=== PATIENT | male | born 1995 | race African-American/Black ===

== ENCOUNTER 2023-12-15 17:09 | Emergency (ER) | payer OTHER, SELFPAY ==
[2023-12-15 17:18] VITALS: BP 127/86
--- NOTE | 2023-12-15 17:50 | ED.GENMED ---
History of Present Illness
General
Chief Complaint: Crisis Evaluation
Source: patient and police
Time Seen by Provider: 12/15/23 17:25
History of Present Illness
History of Present Illness:
28-year-old male brought to the emergency room by police under 302. Patient was evidently walking around the [employer] naked. When asked why he was doing this he stated lots of people very interested in his sexuality. Patient states that
he has 'de-diagnosed himself' from schizophrenia. He has had Haldol injections before. He was prescribed Haldol and Risperdal in the past but is not taking them any longer. Patient denies any suicidal or homicidal ideations. He does admit to
hearing voices which she says are from real beings not delusions.
Past History
Past History
ED Past Medical History: IDDM and Psychiatric (Schizophrenia)
ED Past Surgical History: None
Social History
Tobacco: Smoker
Alcohol: None
Drug: Marijuana
Personal: Single
Living: homeless
Employment: Not employed
Family History
Family History: Other (Noncontributory)
Phy Exam
Physical Exam
Physical Exam:
General: Awake, Alert, Oriented X3. No acute distress.
Vitals: unremarkable
Head: Atraumatic
Eyes: Pupils equal, EOMI
Throat: Airway intact, no exudates
Neck: Trachea midline
Lungs: Clear and equal b/l
Heart: Regular rate, no murmurs
Abd: Soft, Nontender, No pulsatile mass
Neuro: Cranial nerves intact, muscle strength equal bilaterally, cerebellar exam normal
Skin: Warm, dry, no rash
Extremities: pulses equal b/l, no edema
Course
Orders/Labs/Results
Orders:
Orders
12/15/23 17:43
Ketamine Concentrate Injection [Ketamine HCl] 500 mg .ROUTE .STK-MED ONE
Ketamine [Ketalar] 200 mg .ROUTE .STK-MED ONE
12/15/23 17:45
Haloperidol Lactate [Haldol] 5 mg .ROUTE .STK-MED ONE
Lorazepam [Ativan] 2 mg .ROUTE .STK-MED ONE
12/15/23 17:49
Haloperidol Lactate [Haldol] 5 mg IV NOW STA
Lorazepam [Ativan] 2 mg IM NOW STA
12/15/23 17:51
Urine Drug Abuse Screen Urgent
Date Specimen was Collected: 12/16/23
Time Specimen was Collected: 02:40
12/15/23 17:52
Haloperidol Lactate [Haldol] 5 mg IM NOW STA
12/15/23 18:01
1:1 Observation - Suicide/ Violent Behavior As Directed
Restraints - Violent As Directed
Restraint Type-: Locked-4 point/4 rails
Apply From (date): 12/15/23
Apply from (time): 18:01
Remove (date): 12/15/23
Remove (time): 22:01
12/15/23 18:50
Basic Metabolic Panel Urgent
Complete Blood Count/With Diff Urgent
12/16/23 02:42
Fentanyl, Urine Urgent
Abnormal Lab Results
12/15/23 12/16/23
18:50 02:42
BUN 7 L mg/dl
(9-20)
Creatinine 0.6 L mg/dL
(0.7-1.3)
U Methamphetamines Scrn Positive H
(Negative)
U Benzodiazepines Scrn Positive H
(Negative)
12/15/23 18:50
12/15/23 18:50
Vital Signs
Initial and Last Documented VS:
Initial Vital Signs
Temp Pulse Resp BP Pulse Ox
98.4 F 80 16 127/86 99
12/15/23 17:18 12/15/23 17:18 12/15/23 17:18 12/15/23 17:18 12/15/23 17:18
Last Documented Vital Signs
Temp Pulse Resp BP Pulse Ox
98.4 F 92 17 103/78 97
12/15/23 17:18 12/16/23 06:33 12/16/23 06:33 12/16/23 06:33 12/16/23 06:33
MDM/Problems Addressed
MDM/Problems Addressed:
Patient initially cooperative for my history and physical. We discussed the fact we are waiting for telepsych to speak to him in regards to the 302 the patient became somewhat agitated. He stated he is not being 302 at which point he began to try
to leave the room. I attempted to guide him back into the room which resulted in a more physical interaction. Multiple security members required to get the patient back into his room and onto the gurney. Leather restraints were applied. Haldol
and Ativan were administered IM. Patient was uninjured in the process.
*Pulse Oximetry
Patient hypoxic: no
*Critical Care Note
Total Time (30-74mins, 75-104mins- exclusive of procedures): Not Applicable
ED Attending Note
-
Portions of this chart may have been created with voice recognition software.� Occasional wrong word or��sound alike� substitutions may have occurred due to the inherent limitations of voice recognition software.
Discharge Plan
Departure
Patient Disposition: Psych Facility
Date of Disposition: 12/16/23
Time of Disposition: 10:17
Condition: Fair
Discharge Problem:
Acute exacerbation of psychosis, Schizophrenia
Prescriptions:
No Action
atorvastatin 20 MG tablet
20 mg PO HS
cetirizine 10 MG tablet
10 mg PO DAILY
amlodipine 10 MG tablet
10 mg PO DAILY
cholecalciferol (vitamin D3) 2,000 UNITS tablet
2,000 units PO DAILY
metformin 1,000 MG tablet
1,000 mg PO DAILY
lisinopril 5 MG tablet
5 mg PO DAILY
metformin 500 mg Tablet
500 mg PO QPM
glipizide 10 mg Tablet
10 mg PO BID
hydrochlorothiazide 12.5 mg Tablet
12.5 mg PO DAILY
empagliflozin 25 mg Tablet
25 mg PO DAILY
Referrals:
UNKNOWN,NO INTERVIEW [Family Provider] -
Interventions
Interventions:
*Risk Screen - Suicide Last Done: 12/15/23 17:22
*General Assessment Last Done: 12/15/23 17:20
*Neglect/Abuse Screening Last Done: 12/15/23 17:21
ED- Fall Risk Assessment Last Done: 12/15/23 19:12
ED-Psychological Assessment Last Done: 12/15/23 17:22
Discharge Date and Time
Print Language: BULGARIAN
[2023-12-15] MEDS: ATIVAN 2 MG IM (17:51)
[2023-12-15] MEDS: HALDOL 5 MG IM (17:52)
[2023-12-15 18:57] LABS: % Basophils 0.5 % (0-2); % Eosinophils 2.3 % (0-6); % Immature Granulocytes 0.2 % (0-0.5); % Lymphocytes 25.9 % (20.5-51.1); % Monocytes 6.6 % (1.7-9.3); % Neutrophils 64.5 % (42.2-75.2); Absolute Eosinophils 0.1 10^3/uL (0-0.7); Absolute Lymphocytes 1.6 10^3/uL (1.2-3.4); Absolute Monocytes 0.4 10^3/uL (0.1-0.6); Absolute Neutrophils 3.9 10^3/uL (1.4-6.5); Hematocrit 42.4 % (39.0-52.0); Hemoglobin 14.9 g/dL (13.0-18.0); Mean Corp Hgb Conc. 35.1 g/dL (33.0-37.0); Mean Corpuscular Hgb 30.8 pg (27.0-31.0); Mean Corpuscular Volume 87.6 fL (80.0-94.0); Mean Platelet Volume 8.9 fL (7.4-10.4); Nucleated Red Blood Cells % 0 % (-); Platelet Count 283 10^3/uL (130-400); Red Blood Cell Count 4.84 10^6/uL (4.70-6.10); Red Cell Dist. Width 13.2 % (11.5-14.5)
[2023-12-15 19:21] LABS: Blood Urea Nitrogen 7 mg/dl (9-20); Calcium 9.7 mg/dl (8.4-10.2); Carbon Dioxide 23 mmol/L (22-30); Chloride 105 mmol/L (98-107); Glucose 92 mg/dl (70-99); Potassium 3.8 mmol/L (3.5-5.1); Sodium 138 mmol/L (135-145); eGFR > 60.00
[2023-12-16 03:14] LABS: Amphetamines Negative (Negative); Barbiturates Negative (Negative); Benzodiazepines Positive (Negative); Buprenorphine Negative (Negative); Cocaine Negative (Negative); Marijuana Negative (Negative); Methadone Negative (Negative); Methamphetamines Positive (Negative); Opiates Negative (Negative); Phencyclidine Negative (Negative); Tricyclic Antidepressants Negative (Negative)
[2023-12-16 03:31] LABS: Fentanyl, Urine Negative (Negative)
[2023-12-16 06:33] VITALS: BP 103/78
--- NOTE | 2023-12-16 13:27 | PHANOTE ---
med rec note- patient brought into crisis after being found naked and confused. unable to talk to patient at this time. crisis team was able to print out medication list from there office record plus i have pharmacy records to compare. patient last
ecw visit 12/06/23 and patient amended on not talking his bp or starting new blood sugar medication for 2 months
--- NOTE | 2023-12-16 14:04 | CON.MD ---
Addendum entered and electronically signed by Hetal Guajardo MD 12/16/23 14:34:
spoke to act nurse. the patient has NOT been eating. he has lost 50 lbs in the last year. nursing took his weight yesterday 153 lbs. he was seen yesterday and described as 'unwell responding to internal stimuli ' he has hx diabetes mellitus
and he is not taking care of himself. it was a struggle to get him to go to pcp on december 05. his pcp made a deal with him that he could take only famotidine (gerd) and jardiance for dm but he did not even cooperate with that recommendation. he has
come up + for meth in er visits in the past. meth likely contributing to his psychosis. he has declined his last haldol dec injections and that started his decompensation but staff did not feel until now that t his was sufficient for involuntary
hospital stay. he resides in [place]. he was kicked out of [facility] [employer] earlier this year bc of rule infractions including substance use (etoh meth). he is also refusing his meds for htn and high cholesterol which he has not taken in months.
Original Note:
Consultation - Medical
-
patient seen chart reviewed. the patient is a 28 year old male who was hospitalized after a 302 petition was initiated when they were called to a local shop bc a male was naked. the shop shipping room supervisor attempted to give patient a towel to cover himself but
the patient took it off and ran off. the patient is alleged to have explained himself to the telepsychiatrist who assessed him by saying a voice told him to do this. he told me he just 'felt like it' and added that he did not deserve to be 302
committed as he did nothing to endanger himself or others. the patient is an ACT client at [facility]. he reportedly stopped taking haldol and decompensated. he lives in some type of supervised housing. he reports he sleeps okay. appetite is good he
denies thoughts of harm to self or others. he was agressive on admit to er and required ketamine haldol and ativan to calm him.
past psych hx patient has been hospitalized several times over the years. reportedly there was a hosp that was over a year in duration. he is followed at [facility] in the ACT program. i attempted to call the prescriber for that program and a cm but no
response. zyprexa in the past
past med hx patient w hx hld htn niddm meds nctz metformin glipizice jardiance atorvastatin lisinopril zyrtec amlodopine bp103/78 127/80 p 92 r 17 afebrile tox amphets bzp
fh denied
substance abuse denied but amphets and bzp in tox screen (bzp may have been given here)
social resides in psych housing
mse alert ox3 not very cooperative in giving hx patient admits to hallucinations. says he was naked at a shop bc 'i wanted to' mood is irritated affect blunted denies si aver intell insight judgment lacking
dx schizophrenia
plan for now will pursue 303 pending further info from the ACT team and from his residence. risperdal 2 mg bid. prn ativan for agitation
[2023-12-16] MEDS: RISPERDAL M-TAB (ORALLY DISINTEGRATING) PO ×2 (19:25→19:29)
[2023-12-16 19:30] VITALS: BP 116/74
[2023-12-17 06:10] VITALS: BP 126/86
[2023-12-17] MEDS: RISPERDAL M-TAB (ORALLY DISINTEGRATING) PO (09:14)
--- NOTE | 2023-12-17 12:06 | W.PN.UPDATE ---
Update Note
Progress Note Update
patient seen chart reviewed. the patient remains much the same. he was denying the need for hospitalization psychiatrically but in the end he agreed to the commitment and stipulated and the metaphysics teacher signed an order for up to 20 days in pt rx. he has
refused risperdal thus far but he is generally cooperative. he will hopefully be tranferred to psych hosp in the next 24 hours.
[2023-12-17 16:47] LABS: Glucose - Point of Care 121 mg/dl (70-99)
[2023-12-17] MEDS: RISPERDAL M-TAB (ORALLY DISINTEGRATING) 2 MG PO (19:01)
[2023-12-17 21:37] VITALS: BP 126/77
== END 2023-12-17 21:50 ==
LOC: EMR 17:09
PROVIDERS: EMERGENCY PHYSICIAN Emergency Medicine; OTHER PHYSICIAN Psychiatry & Neurology Psychiatry
DX: F20.9 Schizophrenia, unspecified (principal); F29 Unspecified psychosis not due to a substance or known physiological condition; F17.200 Nicotine dependence, unspecified, uncomplicated; Z59.00 Homelessness unspecified
CPT/HCPCS: 99285; 96372 ×2; 80048; 80306; 80307; 82962; 85025